=== PATIENT | female | born 1985 | race Hispanic/Latino ===

== ENCOUNTER 2016-10-06 15:13 | Emergency (ER) | payer MEDICAID | END 2016-10-06 16:15 | disposition left against medical advice (07) | LOC: ED 15:13 | DX: R56.9 Unspecified convulsions (principal); Z88.0 Allergy status to penicillin; Z88.2 Allergy status to sulfonamides; Z88.8 Allergy status to other drugs, medicaments and biological substances; Z53.21 Procedure and treatment not carried out due to patient leaving prior to being seen by health care provider ==